=== PATIENT | female | born 1985 | race Caucasian/White ===

== ENCOUNTER 2016-12-17 14:06 | Emergency (ER) | payer OTHER ==
[~2016-12-17 14:06] MED LIST: AMOXICILLIN PO; AMOXICILLIN500 M1 PO; ARTIFICIAL TEAR1 DRP OP; AURALGAN EAR DR14 ML AS; AZO; BACTRIM DS TABL1 TA1 PO; BACTRIM DS TABL1 TAB PO; BENADRYL25 M3; CELEXA PO; CELEXA20 MG PO; CIPRO PO; CLARITIN10 MG; COLACE PO; DESYREL100 MG PO; DICLOFENAC PO; FLEXERIL; FLEXERIL10 MG PO; FLONASE16 GM; HYDROCODONE-APA1 T56 PO; IBUPROFEN800 MG PO; KEFLEX500 MG PO; KENALOG IN ORABA5 GM TOP; LITHIUM CARBON450 MG PO; LORTAB 10-5001 EACH PO; LORTAB 5/500 TA1 TA1 PO; MEDROL4 MG/DOSE- PO; MIRALAX17 GM PO; MOBIC15 MG PO; NAPROXEN500 M1 PO; NEURONTIN; NIFEREX-150150 MG; NO MEDICATIONS; PERCOCET 51 UDTAB 5/ PO; PERCOCET5/325 PO; PHENERGAN DM1 ML PO; PHENERGAN25 M1 PO; PREDNISONE PO; PREDNISONE50 MG PO; PRENATAL MULITV1 TAB; PRINIVIL10 MG; PYRIDIUM PO; ROBITUSSIN AC PO; SKELAXIN PO; SUDAFED30 M1 PO; SULFAMETHOXAZOLE; TRAMADOL HCL50 M2; TRAZODONE HCL100 MG PO; TRIMETHOPRIM; TYLENOL #3 PO; ULTRAM PO; VIBRAMYCIN100 M1 PO; VICODIN 5/1 TAB 5/50 PO; VICODIN 5/500 T1 TAB PO; VOLTAREN50 MG PO; VOLTAREN75 MG PO; XANAX0.5 M1; ZITHROMAX PO; ZOVIRAX800 MG PO; ZYRTEC-D T1 TAB.SR1 PO; ZYRTEC10 M2 PO; [UNRECOGNIZED DRUG - OTHER]
[2016-12-17 14:37] LABS: BASOPHIL# 0.2 X10e3 (0-0.3); EOSINOPHIL# 0.8 X10e3 (0-0.7); EOSINOPHIL% 4.2 % (0.0-7.0); HEMATOCRIT 42.9 % (35.0-45.0); HEMOGLOBIN 14.2 gm/dL (12.0-16.0); LYMPHOCYTE# 3.3 X10e3 (1.0-3.5); LYMPHOCYTE% 17.4 % (17.0-45.0); MEAN CELL VOLUME 86.7 FL (83-96); MEAN CORPUSCULAR HEMOGLOBIN 28.7 PG (28-34); MEAN CORPUSCULAR HGB CONC 33.1 g/dL (30-36); MEAN PLATELET VOLUME 8.5 FL (6.5-11.5); MONOCYTE# 1.1 X10e3 (0-1.0); MONOCYTE% 5.9 % (3.0-12.0); NEUTROPHIL# 13.5 X10e3 (1.5-7.1); NEUTROPHIL% 71.5 % (40-75); PLATELET COUNT 478 X10e3 (140-420); RED BLOOD COUNT 4.95 X10e (3.90-5.30); RED CELL DISTRIBUTION WIDTH 15.6 % (11.0-15.5); WHITE BLOOD COUNT 18.8 X10e3 (4.0-10.5)
[2016-12-17 14:39] LABS: DIFF IND YES
[2016-12-17 15:00] LABS: BLOOD UREA NITROGEN 15 mg/dL (9-23); CALCIUM SERUM 8.8 mg/dL (8.4-10.2); CARBON DIOXIDE 24 mmol/L (22-31); CHLORIDE 103 mmol/L (100-111); CREATININE SERUM 0.6 mg/dL (0.6-1.4); GLOM FILT RATE Estimated ABOVE60 mL/min (>60); GLUCOSE FASTING 104 mg/dL (70-110); POTASSIUM 3.9 mmol/L (3.5-5.1); SODIUM 137 mmol/L (135-145)
[2016-12-17 15:01] LABS: PLATELET ESTIMATE INCREASED (NORMAL); RBC NORMAL YES
== END 2016-12-17 15:30 | disposition home or self-care (01) ==
LOC: CFTX 14:06
PROVIDERS: Nurse Practitioner
DX: L02.214 Cutaneous abscess of groin (principal); L02.211 Cutaneous abscess of abdominal wall; E11.9 Type 2 diabetes mellitus without complications; I10 Essential (primary) hypertension; F17.210 Nicotine dependence, cigarettes, uncomplicated; Z90.49 Acquired absence of other specified parts of digestive tract
CPT/HCPCS: 10061; 36415; 80048; 84703; 85025; 87070; 87205; 96365; 96375; 99284; J2270; J2405

== ENCOUNTER 2017-01-27 16:14 | Emergency (ER) | payer OTHER ==
[2017-01-27 15:09] LABS: BASOPHIL# 0.2 X10e3 (0-0.3); DIFF IND YES; EOSINOPHIL# 0.6 X10e3 (0-0.7); EOSINOPHIL% 3.1 % (0.0-7.0); HEMATOCRIT 45.8 % (35.0-45.0); HEMOGLOBIN 14.7 gm/dL (12.0-16.0); LYMPHOCYTE# 3.8 X10e3 (1.0-3.5); LYMPHOCYTE% 19.8 % (17.0-45.0); MEAN CELL VOLUME 88.4 FL (83-96); MEAN CORPUSCULAR HEMOGLOBIN 28.3 PG (28-34); MEAN CORPUSCULAR HGB CONC 32.1 g/dL (30-36); MEAN PLATELET VOLUME 8.7 FL (6.5-11.5); MONOCYTE# 1.1 X10e3 (0-1.0); MONOCYTE% 5.5 % (3.0-12.0); NEUTROPHIL# 13.6 X10e3 (1.5-7.1); NEUTROPHIL% 70.6 % (40-75); PLATELET COUNT 461 X10e3 (140-420); RED BLOOD COUNT 5.19 X10e (3.90-5.30); RED CELL DISTRIBUTION WIDTH 15.3 % (11.0-15.5); WHITE BLOOD COUNT 19.3 X10e3 (4.0-10.5)
[2017-01-27 15:38] LABS: PLATELET ESTIMATE INCREASED (NORMAL)
[2017-01-27 15:41] LABS: ALBUMIN SERUM 4.1 g/dL (3.5-5.0); ALKALINE PHOSPHATASE 80 U/L (32-92); ALT (SGPT) 14 U/L (10-40); AST (SGOT) 14 U/L (10-42); BILIRUBIN,TOTAL 0.4 mg/dL (0.2-2.0); BLOOD UREA NITROGEN 12 mg/dL (9-23); CALCIUM SERUM 9.2 mg/dL (8.4-10.2); CARBON DIOXIDE 25 mmol/L (22-31); CHLORIDE 105 mmol/L (100-111); CREATININE SERUM 0.6 mg/dL (0.6-1.4); GLOM FILT RATE Estimated 121.5 mL/min (>60); GLUCOSE FASTING 93 mg/dL (70-110); LIPASE 17 U/L (22-51); POTASSIUM 4.1 mmol/L (3.5-5.1); PROTEIN TOTAL SERUM 7.9 g/dL (6.0-8.3); SODIUM 140 mmol/L (135-145)
[2017-01-27 15:43] LABS: BILIRUBIN, DIRECT <0.1 mg/dL (0.0-0.2); BILIRUBIN,INDIRECT 0.3 mg/dL (0.0-0.9)
== END 2017-01-27 19:45 | disposition home or self-care (01) ==
LOC: CED 16:14
DX: R19.7 Diarrhea, unspecified (principal); R11.2 Nausea with vomiting, unspecified; D72.829 Elevated white blood cell count, unspecified; E11.9 Type 2 diabetes mellitus without complications; F31.9 Bipolar disorder, unspecified; F17.210 Nicotine dependence, cigarettes, uncomplicated; Z90.49 Acquired absence of other specified parts of digestive tract
CPT/HCPCS: 80048; 80076; 83690; 85025; 96361; 96374; 96375; 99284; J2405